=== PATIENT | female | born 1955 | race American Indian/Alaskan Native ===

== ENCOUNTER 2017-07-13 12:16 | Day surgery (SDC) | payer OTHER ==
[2017-07-13] MEDS: NACL 0.9% 1000 ML 1,000 ML IV SCH ×2 (13:44→17:48)
[2017-07-13] MEDS ORDERED: WATER FOR IRRIG STERILE IR ONE (14:10)
[2017-07-13] MEDS ORDERED: WATER FOR IRRIG STERILE ONE ×2 (14:10→16:46)
[2017-07-13] MEDS ORDERED: DIPRIVAN 10 MG/ML IV ONE ×2 (16:19)
--- NOTE | 2017-07-13 17:07 | Anesthesia Consultation ---
Anesthesia Consult and Med Hx Date of service: 07/13/17 - Airway Anesthetic Teeth Evaluation: Good ROM Head & Neck: Adequate Mental/Hyoid Distance: Adequate Mallampati Class: Class I Intubation Access Assessment: Good - Pulmonary Exam CTA: Yes - Cardiac Exam Cardiac Exam: RRR - Pre-Operative Health Status ASA Pre-Surgery Classification: ASA3 Proposed Anesthetic Plan: General - Pulmonary Hx Smoking: Yes (RECENTLY STOPPED AFTER 14 YRS) Hx Asthma: No COPD: No Hx Sleep Apnea: Yes - Cardiovascular System Hx Hypertension: Yes - Central Nervous System Hx Back Pain: Yes (CHRONIC BACK PAIN) Hx Psychiatric Problems: No - Gastrointestinal Hx Gastroesophageal Reflux Disease: No - Endocrine Hx Renal Disease: No Hx Non-Insulin Dependent Diabetes: Yes - Hematic Hx Anemia: Yes - Other Systems Hx Cancer: No Hx Obesity: Yes (BMI > 40)
--- NOTE | 2017-07-13 17:08 | Anesthesia Day of Surgery ---
Anesthesia Day of Surgery - Day of Surgery Patient Examined: Yes Patient H&P Reviewed: Yes Patient is NPO: Yes
--- NOTE | 2017-07-13 17:09 | Discharge Summary ---
Short Stay Discharge Plan Activity: advance as tolerated Weight Bearing Status: Weight Bear as Tolerated Diet: regular Follow up with: RIGO KWON MD [Primary Care Provider] - 7 Days
--- NOTE | 2017-07-13 17:09 | Operative Report ---
Operative Report Operative Report: Date of procedure: 07/13/2017 Procedure: Colonoscopy with hot biopsy polypectomy and polyp ablation. Attending physician: Nolberto Loredo MD Orange Picking Supervisor: Nolberto Loredo MD Indication: Patient is a 61-year-old female who presents for screening colonoscopy. Patient has a past history of colon polyps. A colonoscopy serves to evaluate patient for colorectal cancer screening. Consent: Informed consent was obtained after advising the patient and family regarding nature of this procedure, its indications, potential benefits as well as possible complications including but not limited to bleeding perforation and adverse reaction to medication, infection as well as other cardiopulmonary complications. An informed written and verbal consent was then obtained after due opportunity was provided for questions and answers. Monitoring: Patient was monitored continuously with pulse oximetry and electrocardiographic recordings as well as blood pressure recordings. Vital signs remained stable throughout this procedure with no untoward events. Preoperative assessment: Patient was assessed immediately prior to this procedure for capacity to tolerate monitored anesthesia care and moderate sedation as well as general anesthesia. Patient's ASA classification is 2, Mallampati class is 2, Hyomental distance is 3. Instrument: [employer] video colonoscope Medications: Propofol given intravenously in divided doses. For details please refer to anesthesia records. Description of procedure: Patient was placed in the left lateral decubitus position after achieving sedation, a digital rectal examination was performed following which the colonoscope was introduced into the anal verge and advanced to the cecum which was identified by the cecal valve, the appendiceal orifice, as well as by the cecal strap and direct transillumination. The colonoscope was subsequently withdrawn with careful inspection of all mucosal surfaces. Patient tolerated this procedure well and was subsequently taken to the recovery room. The following findings were noted. Findings: Patient had a diminutive polyp in the sigmoid colon which was ablated. There were 2 diminutive polyps in the descending colon measured approximate 5 mm each there were sessile and removed by hot biopsy polypectomy. The preparation was suboptimal was substantial retained stool in the cecum and ascending colon. On the retroflex view at the anal verge, patient had internal hemorrhoids. Impression: Sigmoid colon polyp status post ablation Descending colon polyps status post hot biopsy polypectomy Retained stool. Internal hemorrhoids. Plan: Follow pathology report High-fiber diet. Repeat colonoscopy in one year due to relatively poor colonoscopic preparation. Repeat colonoscopy in 10 years.
[2017-07-13 17:28] VITALS: BP 148/84
== END 2017-07-13 12:17 | disposition home or self-care (01) ==
LOC: GIO 12:16
PROVIDERS: ATTEND Internal Medicine Gastroenterology
DX: K63.5 Polyp of colon (principal); K64.8 Other hemorrhoids; K59.00 Constipation, unspecified; G47.30 Sleep apnea, unspecified; I10 Essential (primary) hypertension; M54.9 Dorsalgia, unspecified; G89.29 Other chronic pain; E11.9 Type 2 diabetes mellitus without complications; G47.33 Obstructive sleep apnea (adult) (pediatric); Z86.010 Personal history of colon polyps; Z79.4 Long term (current) use of insulin; Z79.899 Other long term (current) drug therapy
CPT/HCPCS: 45384; 45388; 82962; 88305; J2704; J7030

== ENCOUNTER 2017-07-24 11:59 | Day surgery (SDC) | payer OTHER ==
[~2017-07-24 11:59] MED LIST: ANCEF/STERILE WATER 2 GM/20 ML IV NR; DIPRIVAN 10 MG/ML IV ONE; MARCAINE 0.5% INFILTRATI ONE; NACL 0.9% 1000 ML 1,000 ML IV SCH; PEPCID IV NR; SUBLIMAZE ONE; TRANSDERM-SCOP TD NR; VERSED IV NR
[2017-07-24] MEDS ORDERED: ROBINUL ONE ×2 (12:00→14:47)
[2017-07-24] MEDS ORDERED: ZOFRAN ONE (12:00)
[2017-07-24] MEDS ORDERED: XYLOCAINE MPF 2% ONE (12:00)
[2017-07-24] MEDS ORDERED: ZEMURON IV ONE (12:00)
[2017-07-24] MEDS ORDERED: DECADRON ONE (12:00)
[2017-07-24] MEDS ORDERED: MARCAINE 0.5% 30 ML INFILTRATI ONE (13:07)
[2017-07-24] MEDS ORDERED: ZOFRAN IV PRN (13:34)
--- NOTE | 2017-07-24 13:34 | Anesthesia Day of Surgery ---
Anesthesia Day of Surgery - Day of Surgery Patient Examined: Yes Patient is NPO: Yes
--- NOTE | 2017-07-24 13:34 | Anesthesia Consultation ---
Anesthesia Consult and Med Hx Date of service: 07/24/17 - Airway Anesthetic Teeth Evaluation: Good ROM Head & Neck: Adequate Mental/Hyoid Distance: Adequate Mallampati Class: Class II Intubation Access Assessment: Probably Good - Pulmonary Exam CTA: Yes - Cardiac Exam Cardiac Exam: RRR - Pre-Operative Health Status ASA Pre-Surgery Classification: ASA3 Proposed Anesthetic Plan: General - Pulmonary Hx Smoking: Yes (FOR 20 YEARS, QUIT 2009, 1/2 PPD) Hx Asthma: No COPD: No Hx Sleep Apnea: Yes (+CPAP) - Cardiovascular System Hx Hypertension: Yes (SINCE 2009) - Central Nervous System Hx Seizures: No CVA: No Hx Back Pain: Yes (CHRONIC BACK PAIN) Hx Psychiatric Problems: No - Gastrointestinal Hx Gastroesophageal Reflux Disease: No - Endocrine Hx Renal Disease: No Hx Non-Insulin Dependent Diabetes: Yes - Hematic Hx Anemia: Yes - Other Systems Hx Alcohol Use: Yes (SOCIALLY) Hx Substance Use: No Hx Cancer: No Hx Obesity: Yes (BMI > 40)
[2017-07-24] MEDS ORDERED: PROAIR IH ONE (14:20)
[2017-07-24] MEDS ORDERED: SUBLIMAZE ONE (14:24)
[2017-07-24] MEDS ORDERED: ePHEDrine SULFATE ONE (14:24)
[2017-07-24] MEDS ORDERED: NEO SYNEPHRINE/NS Syringe(OR USE) IV ONE (14:30)
[2017-07-24] MEDS ORDERED: NEOSTIGMINE ONE (14:47)
--- NOTE | 2017-07-24 15:00 | Operative Report ---
Operative Report Operative Report: [Date of procedure: 07/24/2017 Pre-operative diagnosis: Umbilical hernia Post-operative diagnosis: Same Procedure name(s): Laparoscopic umbilical hernia repair with mesh Surgeon: Dameon Avalos MD Fire Watchman: None Anesthesia: General, 0.25% Marcaine EBL: Minimal Complications: None Instrument Count: Correct Indications: This is a 61 -year-old patient presents with a umbilical hernia that is now causing symptoms. The patient was offered the above-named procedures possible treatment modality. The risks and benefits discussed until all questions were answered. The patient was subsequent brought to the OR. Findings: Reducible umbilical hernia Procedure: The patient was placed supine on the table. We reviewed the informed consent. After adequate anesthesia. Patient was prepped and draped in the usual sterile fashion. A 5 mm incision was made in the right quadrant. Using Optiview technique we placed a 5 mm port at this position. The abdomen was then insufflated to 15 mm mercury. We introduced the camera and examined the abdomen. We began examining the defect. At this time we placed a 5 mm right lower quadrant port under direct vision and after infiltration of local anesthetic. A 10 mm left upper quadrant port was also placed. We then decreased the intra-abdominal pressure. We then chose a 4 x 6"" proceed mesh with a central 2-0 Vicryl transfascial stitch. This was introduced into the abdomen through the 10 mm port. We used a suture passer to center the mesh over the middle of the defect. We then secured the edges of the mesh using a pro-tack device. A double crown technique was used to place the tacks. We had good coverage of the hernia defect. We then evacuated the insufflation. Removed all ports and closed all port sites using a 4-0 Monocryl in a subcuticular fashion. The patient tolerated the procedure well. The patient was awakened, extubated, and transferred to PACU in no apparent distress.]
--- NOTE | 2017-07-24 15:03 | Short Stay Summary ---
Short Stay Documentation Date of service: 07/24/17 - History H&P: obtained from office - Allergies and Medications Current Medications: Allergies hydrocodone bitartrate [From Lortab] Allergy (Verified 07/22/17 11:20) Nausea Home Medications Medication Instructions Recorded Confirmed Last Taken Type metFORMIN 1,000 mg PO BID 07/11/15 07/22/17 07/12/17 History Amlodipine Besylate/Benazepril 1 each PO QDAY 07/13/17 07/22/17 07/13/17 History [Lotrel 5-10 mg] Citalopram [celeXA] 10 mg PO QDAY 07/22/17 07/22/17 Unknown History Active Medications Cefazolin Sodium (Ancef/Sterile Water 2 Gm/20 Ml) 2 gm IV PREOP NR Stop: 07/24/17 23:59 Famotidine (Pepcid) 20 mg IV PREOP NR Stop: 07/24/17 21:00 Last Admin: 07/24/17 13:46 Dose: 20 mg Sodium Chloride (Nacl 0.9% 1000 Ml) 1,000 mls @ 75 mls/hr IV DIRECT TATIANA Last Admin: 07/24/17 13:45 Dose: 75 mls/hr Midazolam HCl (Versed) 2 mg IV PREOP NR Stop: 07/24/17 23:59 Last Admin: 07/24/17 13:46 Dose: 2 mg Morphine Sulfate (Morphine) 2 mg IV Q10MIN PRN PRN Reason: Pain, Moderate (4-6) Ondansetron HCl (Zofran) 4 mg IV ONCE PRN PRN Reason: Nausea And Vomiting Scopolamine (Transderm-Scop) 1 each TD PREOP NR Stop: 07/24/17 21:00 Last Admin: 07/24/17 13:46 Dose: 1 each - Brief post op/procedure progress note Date of procedure: 07/24/17 Pre-op diagnosis: umbilical hernia Post-op diagnosis: same Procedure: Laparoscopic umbilical hernia repair with mesh Anesthesia: GILDARDO Surgeon: EMILY ANTOINE Estimated blood loss: minimal Pathology: none - Disposition Condition at discharge: Stable Disposition: DC-01 TO HOME OR SELFCARE Short Stay Discharge Plan Activity: no restrictions, advance as tolerated Diet: regular Wound: open to air, keep clean and dry Follow up with: HELEN MAE MD [Primary Care Provider] - 7 Days EMILY ANTOINE MD [Staff Physician] - 7 Days Prescriptions: oxyCODONE /ACETAMINOPHEN [Percocet 5/325] 1 tab PO Q6HR PRN #30 tablet PRN Reason: Pain
[2017-07-24] MEDS: MORPHINE IV PRN ×2 (15:20→16:45)
[2017-07-24] MEDS ORDERED: PERCOCET 5/325 PO PRN (15:43)
--- NOTE | 2017-07-24 18:00 | Post Anesthesia Evaluation ---
- Post Anesthesia Evaluation Patient Participated: Yes Airway Patent: Yes Stable Respiratory Function: Yes Nausea/Vomiting: No Temp > 96.8F: Yes Pain Manageable: Yes Adequeate Hydration: Yes Anesthesia Complications: No Block Receding Appropriately: Not Applicable Patient on Ventilator: No
[2017-07-24 19:09] VITALS: BP 100/64
== END 2017-07-24 17:45 | disposition home or self-care (01) ==
LOC: OR 11:59
PROVIDERS: ATTEND Surgery
DX: K42.9 Umbilical hernia without obstruction or gangrene (principal); Z86.010 Personal history of colon polyps; F32.9 Major depressive disorder, single episode, unspecified; E11.36 Type 2 diabetes mellitus with diabetic cataract; E78.5 Hyperlipidemia, unspecified; D25.9 Leiomyoma of uterus, unspecified; I10 Essential (primary) hypertension; E66.9 Obesity, unspecified; M19.90 Unspecified osteoarthritis, unspecified site; M53.3 Sacrococcygeal disorders, not elsewhere classified; E55.9 Vitamin D deficiency, unspecified; Z98.890 Other specified postprocedural states; Z68.41 Body mass index [BMI] 40.0-44.9, adult
CPT/HCPCS: 49652; 82962; C1781; J0690; J1100; J2250; J2270; J2370; J2405; J2704; J2710; J3010; J7030